=== PATIENT | male | born 1995 | race Two or more races ===

== ENCOUNTER 2020-02-16 01:37 | Emergency (ER) | payer OTHER, SELFPAY ==
[2020-02-16 01:43] VITALS: BP 99/75; PULSE 110; RESP 16; TEMP 36.8; O2SAT 97; BMI 46.2
--- NOTE | 2020-02-16 01:56 | PC.NURSE ---
PT REPORTS VOMITINGx1 MONTH AFTER EATING GREASY FOOD. ALSO REPORTS ?SPIDER BITE TO ABD. UMBILICAL AREA RED AND INFLAMED. PAINFUL TO TOUCH UMBILICUS. MD JOHNSON AT BEDSIDE.
--- NOTE | 2020-02-16 02:07 | CT_ITS ---
EXAMINATION: CT ABDOMEN AND PELVIS WITH CONTRAST CLINICAL INFORMATION: Periumbilical swelling. Evaluate for hernia versus abscess. COMPARISON: None TECHNIQUE: Multidetector volumetric images were obtained from the superior aspect of the liver through the pubic symphysis following administration 100 mL of Omnipaque 350 intravenous contrast. Sagittal and coronal reformatted images were obtained on the technologist's workstation. Oral contrast: No This CT examination was performed using dose optimization techniques as appropriate, variously including the following: *Automated exposure control *Adjustment of mA and/or kV according to patient size (this includes techniques or standardized protocols for targeted exams where dose is matched to indication/reason for exam; i.e. extremities or head) *Use of iterative reconstruction technique DLP: 1934 mGy-cm FINDINGS: LUNG BASES: The visualized lung bases are unremarkable. LIVER, GALLBLADDER, AND BILIARY TREE: The liver is normal in size, shape, and attenuation. No focal hepatic lesion or biliary ductal dilatation is present. The gallbladder is unremarkable with no evidence of radiopaque gallstones, gallbladder wall thickening, or obvious pericholecystic inflammatory changes. PANCREAS: Unremarkable. SPLEEN: Unremarkable. ADRENAL GLANDS: Unremarkable. KIDNEYS AND URETERS: The kidneys are normal in size, shape, and attenuation. No hydronephrosis, hydroureter, or calculi seen. No perinephric stranding. BLADDER: Unremarkable. GASTROINTESTINAL TRACT: The small and large bowel are unremarkable. The appendix is unremarkable. ABDOMINAL WALL: There is periumbilical skin thickening and subcutaneous fat stranding which extends into the umbilicus. Findings suggestive of cellulitis. No associated subcutaneous fluid collection to suggest abscess formation. There is a small associated fat containing umbilical hernia. The small amount of fat within the hernia sac shows mild inflammation. LYMPH NODES: Normal. VASCULAR: Unremarkable. PELVIC VISCERA: Unremarkable. OSSEOUS STRUCTURES: Unremarkable. CT/CT abdomen pelvis w con IMPRESSION: * Umbilical and periumbilical skin thickening and subcutaneous fat stranding suggestive of cellulitis. No evidence of abscess formation. * Small fat-containing umbilical hernia. The small amount of fat within the hernia sac shows mild inflammation.
--- NOTE | 2020-02-16 02:10 | ED.ABDPAIN ---
HPI - Abdominal Pain General Chief Complaint: Abdominal Pain Stated Complaint: abd pain Time Seen by Provider: 02/16/20 02:07 Source: patient Mode of arrival: ambulatory Limitations: no limitations History of Present Illness HPI narrative: This is a 24-year-old male significant past medical history of asthma who presents with complaints 1 month mild nausea and vomiting after eating but denies any weight loss and in fact states that he has gained weight. Otherwise, he denies fever, chills, diarrhea, urinary pain/burning/frequency but does state that over the past 2-3 days he has had worsening periumbilical pain that is constant and over the past 24 hours has been associated with increasing redness to the periumbilical area. Related Data Previous Rx's Medication Instructions Recorded cephalexin 500 mg PO Q6H 5 Days #20 cap 02/16/20 Allergies Allergy/AdvReac Type Severity Reaction Status Date / Time No Known Allergies Allergy Unverified 11/21/19 19:12 [No Known Allergies*] Review of Systems Review of Systems Pertinent positives and negatives as stated in HPI 10 point review of systems is otherwise negative. Physical Exam Vital Signs: Vital Signs: Last Vital Signs Temp 98.0 F 02/16/20 04:00 Pulse 95 02/16/20 04:00 Resp 18 02/16/20 04:00 BP 117/78 02/16/20 04:00 Pulse Ox 98 02/16/20 04:00 Body Mass Index 46.2 VITAL SIGNS: Reviewed. GENERAL: Morbidly obese, Well developed, well nourished, in no acute distress. HEAD: Normocephalic/atraumatic, EYES: PERRLA, EOMI intact without pain, no nystagmus/pallor/icterus noted EARS: Ext canals without abnormality, TMs non-bulging and non-erythematous NOSE: Nares patent bilateral OROPHARYNX: no oral lesions noted, posterior pharynx clear and non-erythematous without noted tonsillar enlargement/erythema/exudates NECK: Supple, no adenopathy LUNGS: Normal breath sounds. No adventitious sounds or accessory muscle use. SpO2<> CARDIOVASCULAR: Regular rate and rhythm without noted murmurs, no JVD or lower extremity edema. ABDOMEN: Obese, Soft, area of erythema and induration at the periumbilical region and extends mid line inferior and on closer inspection within the umbilicus there is suspicion of a possible umbilical hernia but body habitus makes the exam challenging, non-distended with bowel sounds. No rigidity. No guarding. No palpable masses or hernias noted MUSCULOSKELETAL: No tenderness, deformities, or effusions noted on gross inspection. EXTREMITIES: No cyanosis, clubbing or edema. SKIN: Inspection of the skin reveals no rashes, ulcerations, jaundice, pallor, or petechiae. NEUROLOGIC: Alert and oriented x 4. Strength and sensation to light touch were grossly intact x 4. Course Course Course Narrative: This is a 24-year-old male with history and clinical presentation most suggestive of possible umbilical hernia with strangulation or incarceration of abdominal fat versus abscess and less likely insect bite. On review of all investigations there are no acute findings on laboratory workup, but CT scan findings are significant for evidence of subcutaneous cellulitis as well as evidence of a small fat containing umbilical hernia with aforementioned fat within the hernia sac showing mild inflammation. This was discussed with Dr. Lorenzana who states that depending on patient's pain level there is not an emergent indication for surgical intervention at this time and patient could follow up on Monday. However she does state that if patient feels like his pain is too great and she would be willing to come in with the surgical team and intervene. This was further discussed with the patient who is agreeable to watchful waiting until he speaks with Dr. Lorenzana's office on Monday morning. He was discharged to home in stable condition with a short course of Keflex and recommendations for combination analgesics for pain control. MDM - Abdominal Pain Lab Data Result diagrams: 02/16/20 02:13 02/16/20 02:13 Labs: Lab Results 02/16/20 02/16/20 Range/Units 02:13 02:13 WBC 10.2 (4.8-10.8) X10*3/uL RBC 5.03 (4.60-5.80) X10*6/uL Hgb 14.9 (14.0-18.0) g/dl Hct 43.5 (42-52) % MCV 86.5 (80-98) fL MCH 29.6 (27.0-33.0) pg MCHC 34.3 (31.0-36.0) g/dl RDW 12.3 (11.0-16.0) % Plt Count 238 (160-400) X10*3/uL MPV 10.2 (9.4-12.4) fL Immature Gran % (Auto) 0.2 (0.0-0.4) % Neut % (Auto) 65.2 (45-73) % Lymph % (Auto) 23.5 (20-40) % [place] % (Auto) 8.4 (2-11) % Eos % (Auto) 2.3 (0-4) % Baso % (Auto) 0.4 (0-2) % Lymph # (Auto) 2.4 (1.2-4.9) X10*3/uL [place] # (Auto) 0.9 (0.1-1.2) X10*3/uL Eos # (Auto) 0.2 (0.0-0.4) X10*3/uL Baso # (Auto) 0.0 (0.0-0.2) X10*3/uL Abs Immat Gran (auto) 0.02 (0.00-0.03) X10*3/uL Absolute Neuts (auto) 6.6 (2.0-8.3) X10*3/uL Absolute Nucleated RBC 0.000 (0.0-0.012) X10*3/uL Nucleated RBC % (auto) 0.0 (0.0-0.2) /100WBC Sodium 141 (135-145) mmol/L Potassium 3.7 (3.3-5.1) mmol/l Chloride 103 (96-108) mmol/L Carbon Dioxide 28 (22-29) mmol/L Anion Gap 14 (12-20) BUN 15 (9-16) mg/dL Creatinine 0.99 (0.5-1.4) mg/dL Estim Creat Clear Calc 200.3 Estimated GFR > 60 Random Glucose 92 (60-115) mg/dL Calcium 9.6 (8.4-10.2) mg/dL Total Bilirubin 0.9 (0.0-1.0) mg/dL AST 19 (5-37) U/L ALT 37 (0-40) U/L Alkaline Phosphatase 88 (39-117) U/L Total Protein 7.5 (6.5-8.0) g/dL Albumin 4.4 (3.5-5.0) g/dL Discharge Plan Discharge Clinical Impression: Hernia, umbilical, Cellulitis Patient Disposition: Home, Self-Care Instructions: Cellulitis (ED), Umbilical Hernia (ED) Additional Instructions: 1. Tylenol 1000 mg, orally, every 6 hours as needed for pain control. Do not exceed 4000 mg within 24 hours. 2. Ibuprofen 400 mg, orally with milk or food, every 6 hours as needed for pain control. 3. You will need to call the office of Dr. Fogn Monday morning The patient and/or family acknowledge understanding of results (as applicable), diagnosis, treatment plan, need for follow up, and symptoms that should prompt a return to the emergency room. Prescriptions: New cephalexin 500 mg capsule 500 mg PO Q6H 5 Days Qty: 20 RF: 0 Referrals: Shelly Lorenzana MD [Physician] - 2 days (Re-evaluation umbilical hernia and associated cellulitis) [facility] Past Medical History Source: nursing notes reviewed Medical History Asthma Social History Social History Alcohol intake: never Smoking Status: Never smoker Use of substances other than those prescribed or required for medical reasons: No Advance Directives: No Advance Directives Information Provided: No
[2020-02-16 02:18] LABS: Basophils Percent Auto 0.4 % (0-2); Eosinophils Absolute Auto 0.2 X10*3/uL (0.0-0.4); Eosinophils Percent Auto 2.3 % (0-4); Hematocrit 43.5 % (42-52); Hemoglobin 14.9 g/dl (14.0-18.0); Imm Gran Abs Auto 0.02 X10*3/uL (0.00-0.03); Imm Gran Pct Auto 0.2 % (0.0-0.4); Lymphocytes Absolute Auto 2.4 X10*3/uL (1.2-4.9); Lymphocytes Percent Auto 23.5 % (20-40); Mean Corpuscular HGB Conc 34.3 g/dl (31.0-36.0); Mean Corpuscular Hemoglobin 29.6 pg (27.0-33.0); Mean Corpuscular Volume 86.5 fL (80-98); Mean Platelet Volume 10.2 fL (9.4-12.4); Monocytes Absolute Auto 0.9 X10*3/uL (0.1-1.2); Monocytes Percent Auto 8.4 % (2-11); Neutrophils Absolute Auto 6.6 X10*3/uL (2.0-8.3); Neutrophils Percent Auto 65.2 % (45-73); Platelet Count 238 X10*3/uL (160-400); Red Blood Count 5.03 X10*6/uL (4.60-5.80); Red Cell Distribution Width 12.3 % (11.0-16.0); White Blood Count 10.2 X10*3/uL (4.8-10.8)
[2020-02-16 02:21] LABS: MANUAL DIFF FLAG NO
[2020-02-16 02:43] LABS: Alanine Aminotransferase 37 U/L (0-40); Albumin Level 4.4 g/dL (3.5-5.0); Alkaline Phosphatase 88 U/L (39-117); Anion Gap 14 (12-20); Aspartate Amino Transferase 19 U/L (5-37); Bilirubin Total 0.9 mg/dL (0.0-1.0); Blood Urea Nitrogen 15 mg/dL (9-16); Calcium 9.6 mg/dL (8.4-10.2); Carbon Dioxide 28 mmol/L (22-29); Chloride 103 mmol/L (96-108); Creatinine Clr Calc Pharmacy 200.3; Estimated Glomerular Filt Rate > 60; Glucose Random 92 mg/dL (60-115); Potassium 3.7 mmol/l (3.3-5.1); Sodium 141 mmol/L (135-145); Total Protein 7.5 g/dL (6.5-8.0)
[2020-02-16] MEDS: iohexoL 350 MG/ML 100 ML INFUS..BTL IV (03:23)
--- NOTE | 2020-02-16 03:57 | PC.NURSE ---
PT RESTING IN BED, SKIN PWD RESPIRATIONS EVEN UNLABORED. RESULTS RECEIVED, AWAITING MD REEVAL.
[2020-02-16 04:00] VITALS: BP 117/78; PULSE 95; RESP 18; TEMP 36.7; O2SAT 98
[2020-02-16 05:08] LABS: Glucose Urine UA NEG (NEG); Leukocyte Esterase Urine NEG (NEG); Nitrite Urine NEG (NEG); PH 5.5 (5.0-8.0); Urine Blood NEG (NEG); Urine Ketones NEG (NEG); Urine Protein NEG (NEG-TRACE)
[2020-02-16 05:12] LABS: Appearance Urine CLEAR; Color Urine YELLOW
== END 2020-02-16 05:34 | disposition home or self-care (01) ==
PROVIDERS: Emergency Provider Student in an Organized Health Care Education/Training Program
DX: K42.9 Umbilical hernia without obstruction or gangrene (principal); L03.316 Cellulitis of umbilicus; R11.2 Nausea with vomiting, unspecified
CPT/HCPCS: 36415; 74177; 80053; 81003; 85025; 99284; Q9967

== ENCOUNTER → 2020-02-17 13:02 | Outpatient (BNVA) | payer OTHER, SELFPAY | PROVIDERS: Visit Provider Surgery | DX: Z76.89 Persons encountering health services in other specified circumstances (principal) ==

== ENCOUNTER 2020-02-19 11:05 | Day surgery (SDC) | payer OTHER, SELFPAY ==
[2020-02-18 10:44] VITALS: BMI 52.0
--- NOTE | 2020-02-18 10:49 | P.CONAN_ITS ---
Documented by User: Deena Craven 02/18/20 10:51 HPI - Anesthesia Eval Consult details Narrative: 24yo M for Hernia Repair Umbilical, open, incarrcerated [facility] Past Medical History Medical History Asthma Obesity Social History Social History Household Members: Spouse and Children Alcohol intake: never Smoking Status: Never smoker Advance Directives: No Advance Directives Information Provided: Yes Current occupational status: previously employed Current occupation: Security Meds Allergies Allergy/AdvReac Type Severity Reaction Status Date / Time Penicillins Allergy unknown Verified 02/17/20 13:11 Exam Exam Date and Time: February 18, 2020 1049 Height,Weight and Vital Signs: Height 6 ft 4 in Weight 193.684 kg Pertinent Lab Results Pertinent Lab Results: Laboratory Tests 02/16/20 02/16/20 02:13 02:13 WBC 10.2 Hgb 14.9 Hct 43.5 Plt Count 238 Sodium 141 Potassium 3.7 Chloride 103 Carbon Dioxide 28 BUN 15 Creatinine 0.99 Assessment and Plan Assessment Anesthesia Assessment: Chart Reviewed Documented by User: Mildred Caballero 02/19/20 11:12 [facility] Past Medical History Medical History Asthma Obesity Social History Social History Household Members: Spouse and Children Alcohol intake: never Smoking Status: Never smoker Advance Directives: No Advance Directives Information Provided: Yes Current occupational status: previously employed Current occupation: Security Meds Allergies Allergy/AdvReac Type Severity Reaction Status Date / Time Penicillins Allergy unknown Verified 02/17/20 13:11 Exam Airway Mallampati Class: II TM Dist: >3cm Neck ROM: Full Assessment and Plan Assessment Anesthesia Assessment: Anesthesia Plan Discussed and Chart Reviewed Final Anesthetic Review NPO: Yes ASA Class: III Final Preanesthetic Review: No Changes in Pt Med Stat, Meds/Allgs Chart Reviewed, Consent Obtained/Reviewed and Anes Risks/Benef Reviewed Patient Risk: Intermediate Procedure Risk: Low Assessment/Block/Sedation in SS: Assess/Block/Sedation-SS Anesthetic Plan Anesthetic Plan: GA Disposition: Standard PACU
[2020-02-19] VITALS (9 sets, daily range): BP systolic 111–165; BP diastolic 71–104; PULSE 72–108; RESP 16–20; TEMP 36.3–36.9; O2SAT 96–99
[2020-02-19] MEDS: Lactated Ringers 1,000 ML 100 ML IVCONT (10:43)
[2020-02-19] MEDS: ceFAZolin Sodium/Dextrose,Iso 2 GM/50 ML PIGGYBACK IV (10:44)
--- NOTE | 2020-02-19 12:38 | W.PM.OPN ---
Operative Note Operative Note Date of Service: 02/19/20 Narrative: Preoperative diagnosis: Umbilical hernia Postoperative diagnosis: Same Procedure: Repair of umbilical hernia Muck Operator: Deidre Moctezuma Anesthesia: General laryngeal mask Specimen: hernia contents Immediate complications: None Indications: This is a 24-year-old gentleman who presented to the emergency department with a 3 day history of worsening pain and redness in the umbilical area. A CT scan was obtained and was consistent with an incarcerated umbilical hernia containing fat. Since his visit to the emergency room, his pain has been somewhat less, but he reports ongoing difficulty getting out of bed because of pain in the umbilical area. Procedure in detail: With the patient in the supine position after induction of adequate general anesthesia, time-out procedure was performed. The abdomen was prepped with ChloraPrep and was draped sterilely. The surgical site was infiltrated with local anesthetic prior to making the incision. A curvilinear supraumbilical incision was made and was carried into the subcutaneous tissues. Dissection was carried down to the level the induration. The indurated tissue was dissected free and excised. The fascia was inspected. There was a small fascial defect measuring approximately 4 mm in diameter. The wound was copiously irrigated with saline solution. Minimal subcutaneous oozing was controlled using the electrocautery. The hernia was then closed with a single [id number] suture of 0 Tycron. The skin of the umbilicus was reattached to the level of the fascia with an interrupted suture of 3-0 Vicryl. Subcutaneous tissues were reapproximated with additional interrupted sutures of 3-0 Vicryl and skin was closed using a running subcuticular suture of 4-0 Vicryl. Steri-Strips and dry sterile dressings were applied. He tolerated the procedure well and was transported back to the recovery room in stable condition. There were no immediate complications. Sponge and instrument counts were correct.
[2020-02-19] MEDS: oxyCODONE HCl Immed Release 5 MG TABLET 10 MG PO (13:08)
[2020-02-19] MEDS: fentaNYL citrate/PF 100 MCG/2 ML VIAL 50 MCG IVPUSH (13:10)
--- NOTE | 2020-02-19 14:44 | HO.POSTANES ---
Post Anesthesia Evaluation Post Anesthesia Evaluation Vital Signs: Vital Signs Temp Pulse Resp BP Pulse Ox 02/19/20 13:38 98.4 F 72 18 118/76 96 02/19/20 13:23 84 20 149/93 H 98 02/19/20 13:10 20 02/19/20 13:07 86 20 149/93 H 98 02/19/20 12:52 97 18 149/82 H 97 02/19/20 12:47 95 18 111/71 98 02/19/20 12:42 103 H 18 141/104 H 99 02/19/20 12:37 98.4 F 108 H 16 165/89 H 99 02/19/20 10:27 97.4 F 91 16 134/82 96 Anesthesia: General Endotracheal-GETA Mental Status: Awake Pain Control: Satisfactory Nausea/Vomiting: None Hydration: Adequate Anesthesia-Related Issues: No Anes. Related Issues
== END 2020-02-19 14:46 | disposition home or self-care (01) ==
PROVIDERS: Surgery; Visit Provider Nuclear Medicine
DX: K42.0 Umbilical hernia with obstruction, without gangrene (principal); Z88.0 Allergy status to penicillin
CPT/HCPCS: 49587; 88302; 88305; J0690; J1100; J1885; J2250; J2405; J3010